=== PATIENT | female | born 1950 | race Caucasian/White ===

== ENCOUNTER 2016-10-03 15:31 | Inpatient (IN) | payer MEDICARE, OTHER ==
[~2016-10-03] VITALS: Ht 152.4 cm; Wt 70.7 kg
[2016-10-03] MEDS ORDERED: SERT25TA PO (16:01)
[2016-10-03] MEDS ORDERED: ISOS10TA2 PO (16:01)
[2016-10-03] MEDS ORDERED: PIRF267C PO (16:03)
[2016-10-03] MEDS ORDERED: HYD25 PO (16:03)
[2016-10-03] MEDS ORDERED: OMEP20CA16 PO (16:03)
[2016-10-03] MEDS ORDERED: MONT10TA24 PO (16:04)
[2016-10-03] MEDS ORDERED: BENA5TAB2 PO (16:04)
[2016-10-03] MEDS ORDERED: ALBU2.5V3 NEB (16:04)
[2016-10-03] MEDS ORDERED: LOSA50TA6 PO (16:05)
[2016-10-03] MEDS ORDERED: FURO-110 PO (16:05)
[2016-10-03] MEDS ORDERED: PRED10TA PO (16:05)
[2016-10-03] MEDS ORDERED: CALC1TAB79 PO (16:06)
[2016-10-03] MEDS ORDERED: NIT4 SL (16:06)
[2016-10-03] MEDS ORDERED: IPRATROPIUM (NEB) 0.5 MG/2.5 ML AMP INH STA (16:14)
[2016-10-03] MEDS ORDERED: ALBUTEROL 0.5% (NEB) 2.5 MG/0.5 ML AMP INH STA (16:14)
[2016-10-03] MEDS ORDERED: METHYLPREDNISOLONE 125 MG INJ IV STA (16:14)
[2016-10-03 17:33] LABS: ADD SCAN DIFF NO
--- NOTE | 2016-10-03 17:35 | RADRPT ---
PROCEDURE: XR Chest. CLINICAL INDICATION: Shortness of breath. Asthma exacerbation. TECHNIQUE: Single frontal view. COMPARISON: None. FINDINGS: There are low lung volumes. There is bilateral interstitial pulmonary disease consistent with pulmo nary edema or a chronic inflammatory process. The heart is enlarged. There is calcification in the aorta consistent with atherosclerosis. There is no pleural effusion. There is no pneumothorax. IMPRESSION: 1. Low lung volumes. 2. Interstitial pulmonary disease consistent with pulmonary edema or chronic inflammatory process. 3. Cardiomegaly and atherosclerosis. RPTAT: QQ .Gamaliel Bradshaw MD, MD Date Time Electronically viewed and signed by .Gamaliel Bradshaw MD, on 10/03/2016 17:35 .R/
[2016-10-03 17:40] LABS: BASOPHILS % 0.2 % (0.0-2.0); EOSINOPHILS # 0.2 10^3/ul (0.0-0.5); EOSINOPHILS % 1.6 % (0.0-7.0); HEMATOCRIT 42.8 % (37.0-47.0); HEMOGLOBIN 13.9 g/dl (12.0-16.0); LYMPHOCYTES # 2.6 10^3/ul (0.8-2.9); LYMPHOCYTES % 21.7 % (15.0-51.0); MEAN CORPUSCULAR HGB CONC 32.5 g/dl (32.0-37.0); MEAN CORPUSCULAR VOLUME 92.4 fl (82.0-101.0); MEAN PLATELET VOLUME 10.8 fl (7.4-10.4); MONOCYTE # 0.7 10^3/ul (0.3-0.9); MONOCYTES % 5.6 % (0.0-11.0); NEUTROPHIL # 8.3 10^3/ul (1.6-7.5); NEUTROPHILS % 70.3 % (39.0-77.0); PLATELET COUNT 211 10^3/UL (140-415); RED BLOOD COUNT 4.63 10^6/ul (4.20-5.40); RED CELL DISTRIBUTION WIDTH 16.3 % (11.5-14.5); WHITE BLOOD COUNT 11.9 10^3/ul (4.8-10.8)
[2016-10-03 17:52] LABS: CHLORIDE 102 mmol/L (97-110); SODIUM 143 mmol/L (135-144)
[2016-10-03 17:53] LABS: POTASSIUM 4.2 mmol/L (3.5-5.1)
[2016-10-03 17:55] LABS: ANION GAP 15 (8-16); BLOOD UREA NITROGEN 26 mg/dl (7-20); CARBON DIOXIDE 30 mmol/L (21-31); CREATININE 0.81 mg/dl (0.44-1.00)
[2016-10-03 17:56] LABS: CALCIUM 8.8 mg/dl (8.4-10.2); GLUCOSE 109 mg/dl (70-220)
[2016-10-03 18:06] LABS: B-TYPE NATRIURETIC PEPTIDE 222 PG/ML (0-125)
[2016-10-03 18:13] LABS: TROPONIN-I < 0.010 ng/ml (0.00-0.12)
[2016-10-03] MEDS ORDERED: SOD CHLORIDE 0.9% 1,000 ML IV SCH (19:59)
[2016-10-03] MEDS ORDERED: ONDANSETRON 4 MG INJ IV PRN (20:00)
[2016-10-03] MEDS ORDERED: ACETAMINOPHEN 325 MG TAB PO PRN (20:00)
--- NOTE | 2016-10-03 20:05 | ERA ---
ER Documentation Chief Complaint Date/Time DATE: 10/03/16 TIME: 20:00 Chief Complaint 3 days of cough and congestion with mod sob,chest pain, vomiting with cough HPI 66-year-old female with a history of pulmonary fibrosis generally oxygen dependent complaining of 3 days of productive white sputum cough nonbloody with shortness of breath. She says she also has chest pain is worse with inspiration. She says this is consistent with prior pulmonary fibrosis exacerbations. She says she also is having some coughing fits that cause posttussive vomiting. No diarrhea no abdominal pain. ROS All systems reviewed and are negative except as per history of present illness. Medications Home Meds Reported Medications Calcium Carbonate/Vitamin D3 (Oysco 500+D Tablet) 1 Each Tablet, 1 EACH PO DAILY , TAB 10/03/16 Nitroglycerin* (Nitrostat*) 0.4 Mg Tab.subl, 0.4 MG SL Q5MIN Y for CHEST PAIN, BOTTLE 10/03/16 Prednisone* (Prednisone*) 10 Mg Tab, 10 MG PO DAILY, TAB 10/03/16 Losartan Potassium* (Losartan Potassium*) 50 Mg Tablet, 50 MG PO DAILY, TAB 10/03/16 Furosemide* (Lasix*) 20 Mg Tablet, 20 MG PO DAILY, TAB 10/03/16 Benazepril Hcl* (Benazepril Hcl*) 5 Mg Tablet, 5 MG PO DAILY, #30 TAB 10/03/16 Albuterol Sulfate* (Albuterol Sulfate* Neb) 0.083%-3 Ml Neb, 2.5 MG NEB Q6 Y for WHEEZING AND SOB, #30 VIAL 10/03/16 Montelukast Sodium* (Montelukast Sodium*) 10 Mg Tablet, 10 MG PO QHS, #30 TAB 10/03/16 Hydrochlorothiazide* (Hydrochlorothiazide*) 25 Mg Tab, 25 MG PO DAILY, #30 TAB 10/03/16 Omeprazole* (Omeprazole*) 20 Mg Capsule.dr, 20 MG PO DAILY, #30 CAP 10/03/16 Pirfenidone (Esbriet) 267 Mg Capsule, 801 MG PO WITH MEALS, CAP THREE TIMES DAILY 10/03/16 Sertraline Hcl* (Zoloft*) 25 Mg Tablet, 25 MG PO DAILY, #30 TAB 10/03/16 Isosorbide Dinitrate* (Isosorbide Dinitrate*) 10 Mg Tablet, 10 MG PO TID, TAB 10/03/16 Allergies Allergies: Coded Allergies: Penicillins (Verified Allergy, Intermediate, RASH ITCHY, 10/03/16) PMhx/Soc History of Surgery: Yes (BREAST REDUCTION, ABD) Anesthesia Reaction: No Hx Neurological Disorder: No Hx Respiratory Disorders: No Hx Cardiac Disorders: Yes (HTN) Hx Psychiatric Problems: No Hx Miscellaneous Medical Probl: No Hx Alcohol Use: No Hx Substance Use: No Hx Tobacco Use: No Smoking Status: Never smoker FmHx Family History: No coronary disease Physical Exam Vitals Vital Signs Date Time Temp Pulse Resp B/P Pulse Ox O2 Delivery O2 Flow Rate FiO2 10/03/16 18:22 98.4 95 25 140/62 100 Mask 5.0 10/03/16 16:39 Nasal Cannula 4 10/03/16 15:34 97.9 105 30 132/78 82 Physical Exam Const: Well-developed, well-nourished Head: Atraumatic, normocephalic Eyes: Normal Conjunctiva, PERRLA, EOMI, normal sclera, no nystagmus ENT: Normal External Ears, Nose and Mouth, moist mucus membranes. Neck: Full range of motion. No meningismus, no lymphadenopathy. Resp: Mild increased work of breathing with diffuse rhonchi scattered throughout the lung yanes Cardio: Regular rate and rhythm, no murmurs, S1 S2 present Abd: Soft, non tender x 4, non distended. Normal bowel sounds, no guarding or rebound, no pulsitile abdominal masses or bruits Skin: No petechiae or rashes, no ecchymosis , no maculopapular rash Back: No midline or flank tenderness Ext: No cyanosis, or edema, FROM x 4, normal inspection, neurovascularly intact x 4 Neur: Awake and alert, STR 5/5 x 4, sensation intact x 4, no focal findings, cerebellum intact Psych: Normal Mood and Affect Result Diagram: 10/03/16 1700 10/03/16 1700 Results 24 hrs Laboratory Tests Test 10/03/16 17:00 Anion Gap 15 B-Type Natriuretic Peptide 222PG/ML Basophils # 0.010^3/ul Basophils % 0.2% Blood Urea Nitrogen 26mg/dl Calcium Level 8.8mg/dl Carbon Dioxide Level 30mmol/L Chloride Level 102mmol/L Creatinine 0.81mg/dl Eosinophils # 0.210^3/ul Eosinophils % 1.6% Glucose Level 109mg/dl Hematocrit 42.8% Hemoglobin 13.9g/dl Lymphocytes # 2.610^3/ul Lymphocytes % 21.7% Mean Corpuscular Hemoglobin 30.0pg Mean Corpuscular Hemoglobin Concent 32.5g/dl Mean Corpuscular Volume 92.4fl Mean Platelet Volume 10.8fl Monocytes # 0.710^3/ul Monocytes % 5.6% Neutrophils # 8.310^3/ul Neutrophils % 70.3% Nucleated Red Blood Cells # 0.010^3/ul Nucleated Red Blood Cells % 0.0/100WBC Platelet Count 12948^3/UL Potassium Level 4.2mmol/L Red Blood Count 4.6310^6/ul Red Cell Distribution Width 16.3% Sodium Level 143mmol/L Troponin I < 0.010ng/ml White Blood Count 11.910^3/ul Current Medications Medications (Trade) Dose Ordered Sig/Xin Route PRN Reason Start Time Stop Time Status Last Admin Dose Admin Albuterol (Proventil 0.5% (Neb)) 10 mg ONCE STAT INH 10/03/16 16:14 10/03/16 16:17 DC 10/03/16 16:29 Ipratropium Arcade (Atrovent 0.02% (Neb)) 1 mg ONCE STAT INH 10/03/16 16:14 10/03/16 16:17 DC 10/03/16 16:29 Methylprednisolone Sodium Succinate (Solu-Medrol) 125 mg ONCE STAT IV 10/03/16 16:14 10/03/16 16:17 DC 10/03/16 17:17 Procedures/MDM PROCEDURE: XR Chest. CLINICAL INDICATION: Shortness of breath. Asthma exacerbation. TECHNIQUE: Single frontal view. COMPARISON: None. FINDINGS: There are low lung volumes. There is bilateral interstitial pulmonary disease consistent with pulmonary edema or a chronic inflammatory process. The heart is enlarged. There is calcification in the aorta consistent with atherosclerosis. There is no pleural effusion. There is no pneumothorax. IMPRESSION: 1. Low lung volumes. 2. Interstitial pulmonary disease consistent with pulmonary edema or chronic inflammatory process. 3. Cardiomegaly and atherosclerosis. RPTAT: QQ .Gamaliel Bradshaw MD, Date Time Electronically viewed and signed by .Gamaliel Bradshaw MD, on 10/03/2016 17:35 .R/ CC: DARIEL DONOVAN DO EKG: Rate/Rhythm: Normal Sinus Rhythm,NL intervals nonspecific ST QRS, ST, QT: NORMAL [place], QRS, QT] Impression: NORMAL EKG Patient states she still feeling a bit short of breath or lung sounds are not much better. She did receive nebulizer treatments for an extended amount of time plus steroids. Will admit for pulmonary fibrosis exacerbation of bronchitis and hypoxia Departure Diagnosis: Primary Impression: Hypoxia Additional Impressions: Pulmonary fibrosis Bronchitis Condition: Stable DARIEL DONOVAN DO Oct 03, 2016 20:05
[2016-10-04] VITALS (13 sets, daily range): BP systolic 106–183; BP diastolic 55–84; PULSE 64–103; RESP 19–21; TEMP 98.1; Ht 152.4 cm; Wt 70.7 kg
[2016-10-04] MEDS ORDERED: ONDANSETRON 4 MG INJ IV PRN (04:00)
[2016-10-04] MEDS ORDERED: NITROGLYCERIN (SL) 0.4 MG TAB SL PRN (04:00)
[2016-10-04] MEDS ORDERED: hydrALAzine 20 MG INJ IV ONE (06:00)
[2016-10-04] MEDS: FUROSEMIDE 20 MG TAB PO SCH (06:29)
[2016-10-04] MEDS ORDERED: PIRFENIDONE 801 MG PO SCH (07:55)
[2016-10-04 08:23] LABS: ADD SCAN DIFF NO
--- NOTE | 2016-10-04 08:26 | HP ---
DATE OF ADMISSION: 10/03/2016 TIME SEEN: 2300. CHIEF COMPLAINT: Cough and shortness of breath. IDENTIFICATION: The patient is a 66-year-old female with a history of pulmonary fibrosis, on home o xygen, arthritis, asthma, and hypertension, who presented to the emergency department with a chief c omplaint of cough and shortness of breath. The patient is Latvian speaking only, but she was answer ing questions appropriately through the help of an branch account manager. She stated that over the past 4 day s also she had been experiencing progressively worsening shortness of breath and cough, which was pr oductive of small whitish sputum. She had been using her albuterol with increased frequency, but he r symptom persisted. She stated she has also been started on oral steroids, which she has been inng gil, but her symptoms persisted and as such, she came here for evaluation. She reported chest pain t hat is associated with the cough and also reported some chills, but no fever. She also reported wilner n on her right arm, which she also was having a hard time with range of motion. She stated she has been receiving steroid injections, which she received recently. When she presented to the ER her blood pressure was 132/78, heart rate 105, respiratory rate 30, tem perature 97.9, and oxygen saturation was 82% on room air. She was given 125 mg of IV Solu-Medrol an d received breathing treatments with albuterol and oxygen. Symptom of hypoxia has improved, but she continues to have a persistent cough which was productive of minimal white sputum. In fact, during my history taking, she had been coughing for quite a long time. REVIEW OF SYSTEMS: A 12-point review of systems was performed and negative except as mentioned in t he HPI. PAST MEDICAL HISTORY: As per HPI. PAST SURGICAL HISTORY: Breast reduction, x2, cholecystectomy, hernia repair. SOCIAL HISTORY: Positive for tobacco, but she quit several years ago. ALLERGIES: PENICILLIN. HOME MEDICATIONS: 1. Albuterol. 2. Benazepril. 3. Imdur. 4. Losartan. 5. Sublingual nitroglycerin. 6. Zoloft. 7. Calcium. 8. Vitamin D. 9. Laxis. 10. Hydrochlorothiazide. 11. Montelukast. 12. Pirfenidone. 13. Prilosec. 14. Prednisone. PHYSICAL EXAMINATION: VITAL SIGNS: Blood pressure 159/83, heart rate 86, respiratory rate 24, temperature 98.1, oxygen sa turation 96% on 2 liters. GENERAL: The patient is sitting on the chair. She is in some distress due to consistent cough and also right upper extremity/shoulder pain from her arthritis. HEENT: No obvious head deformity. Pupils are reactive to light. Extraocular muscles intact. CARDIOVASCULAR: Tachycardic, with a regular rhythm. LUNGS: She has some rhonchi in the bibasilar area. No wheezes were heard. ABDOMEN: Soft. There are old surgical scars. Positive bowel sounds. EXTREMITIES: No edema. Right arm, there is tenderness in the right arm, especially with range of m otion. I did not notice any obvious deformity. In her shoulder area there is some erythema, which she stated was from a recent steroid injection. LABORATORY: WBC 11.9, BUN 26. Otherwise CBC and BMP are within normal limits. BNP is 222. IMAGING: Chest x-ray shows interstitial pulmonary disease consistent with pulmonary edema or chroni c inflammatory process. Also noted was cardiomegaly, atherosclerosis and lower lung volumes. Other burns no pleural effusion or pneumothorax. IMPRESSION: 1. Hypoxia, secondary to pulmonary fibrosis. 2. History of pulmonary fibrosis, on home oxygen. 3. History of asthma, likely with exacerbation. 4. Hypertension, blood pressure not at goal. 5. Right upper extremity pain and limited range of motion, secondary to known arthritis. PLAN: She will be continued on oxygen. She will be treated with bronchodilators and steroids. Jose Antonio little continue her home medications, including her pirfenidone for her pulmonary fibrosis. We will adju st antihypertensives for better blood pressure control, which will most likely also improve after co ntrolling her cough and . We will place a pulmonary consult with Dr. Murrell, who the patient has been following up with. Her chest x-ray also mentions possible pulmonary edema, and the patient actually takes Lasix, and as such, will obtain a 2D echo to evaluate her heart. Further workup and management will be per clinical course. Dictated By: SARAH PEREZ/SAMANTHA Conf#: [id number] DID#: [id number]
[2016-10-04 08:27] LABS: BASOPHILS % 0.2 % (0.0-2.0); EOSINOPHILS % 0.1 % (0.0-7.0); HEMATOCRIT 46.2 % (37.0-47.0); HEMOGLOBIN 15.2 g/dl (12.0-16.0); LYMPHOCYTES # 1.4 10^3/ul (0.8-2.9); LYMPHOCYTES % 15.5 % (15.0-51.0); MEAN CORPUSCULAR HEMOGLOBIN 30.2 pg (29.0-33.0); MEAN CORPUSCULAR HGB CONC 32.9 g/dl (32.0-37.0); MEAN CORPUSCULAR VOLUME 91.8 fl (82.0-101.0); MEAN PLATELET VOLUME 10.2 fl (7.4-10.4); MONOCYTE # 0.4 10^3/ul (0.3-0.9); MONOCYTES % 4.7 % (0.0-11.0); NEUTROPHIL # 7.3 10^3/ul (1.6-7.5); NEUTROPHILS % 79.1 % (39.0-77.0); PLATELET COUNT 229 10^3/UL (140-415); RED BLOOD COUNT 5.03 10^6/ul (4.20-5.40); RED CELL DISTRIBUTION WIDTH 16.4 % (11.5-14.5); WHITE BLOOD COUNT 9.2 10^3/ul (4.8-10.8)
[2016-10-04] MEDS ORDERED: hydrALAzine 20 MG INJ IV PRN (08:30)
[2016-10-04] MEDS ORDERED: morphine 2 MG INJ IV PRN (08:30)
[2016-10-04 08:50] LABS: ALBUMIN 4.2 g/dl (3.3-4.9)
[2016-10-04 08:51] LABS: POTASSIUM 4.3 mmol/L (3.5-5.1)
[2016-10-04 08:53] LABS: ALBUMIN/GLOBULIN RATIO 1.23; BILIRUBIN,INDIRECT 0.4 mg/dl (0-1.1); BILIRUBIN,TOTAL 0.4 mg/dl (0.2-1.3); CREATININE 0.67 mg/dl (0.44-1.00); TOTAL PROTEIN 7.6 g/dl (6.1-8.1)
[2016-10-04 08:54] LABS: CALCIUM 9.3 mg/dl (8.4-10.2)
[2016-10-04] MEDS ORDERED: [UNRECOGNIZED DRUG - REMARK] XX SCH (10:00)
[2016-10-04] MEDS: ACETAMINOPHEN 325 MG TAB PO PRN (10:01)
[2016-10-04] MEDS: METHYLPREDNISOLONE 125 MG INJ IV SCH ×2 (10:02→21:29)
[2016-10-04] MEDS: LOSARTAN 50 MG TAB PO SCH (10:02)
[2016-10-04] MEDS: BENAZEPRIL 5 MG TAB PO SCH (10:03)
[2016-10-04] MEDS: CALCIUM/VITAMIN D (500/200) TAB PO SCH (10:03)
[2016-10-04] MEDS: SERTRALINE 50 MG TAB PO SCH (10:03)
[2016-10-04] MEDS: ISOSORBIDE DINITRATE 10 MG TAB PO SCH ×3 (10:03→21:22)
[2016-10-04] MEDS: FAMOTIDINE 20 MG TAB PO SCH ×2 (10:03→21:27)
[2016-10-04] MEDS: HEPARIN 5,000 UNIT/0.5 ML SYG SC SCH ×2 (10:25→21:44)
[2016-10-04] MEDS: GUAIFENESIN/DM 5ML CUP PO PRN (12:44)
--- NOTE | 2016-10-04 14:11 | PN ---
DATE: 10/04/2016 TIME OF EVALUATION: 12:40 p.m. SUBJECTIVE DATA: Complains of cough and dyspnea. Complains of right shoulder pain. OBJECTIVE DATA: VITAL SIGNS: Temperature 97.7, pulse rate 69, respiratory rate 19, blood pressure 114/60, oxygen saturation 97% on 3 liters oxygen via nasal cannula. GENERAL: This is a slightly obese female lying in bed in no apparent distress. HEENT: Head normocephalic and atraumatic. Eyes: Anicteric sclerae. Conjunctivae clear. ENT: Nasal septum is midline. Oral mucosa is dry. NECK: Supple. No JVD noticed. RESPIRATORY: Bilaterally diminished breath sounds. Bilateral fine rales heard. Minimal use of accessory muscles of respiration. CARDIAC: Regular rate and rhythm. No obvious murmurs heard. ABDOMEN: Soft, nontender and nondistended. Bowel sounds positive in all 4 quadrants. GENITOURINARY: Deferred. EXTREMITIES: No cyanosis, no clubbing, no edema. Peripheral pulses palpable. NEUROLOGIC: The patient is awake, alert and oriented. Cranial nerves are grossly intact. LABORATORY AND DIAGNOSTIC DATA: WBC 9.2, hemoglobin 15.1, hematocrit 46.2, platelet count 229. Sodium 147, potassium 4.3, chloride 104, carbon dioxide 38 , anion gap 17, BUN 24, creatinine 0.6 and glucose 96, calcium 9.3. ASSESSMENT AND PLAN: 1. Acute on chronic respiratory failure. Etiology could be possible underlying airway infection on the top of underlying pulmonary fibrosis. Continue inhaled bronchodilators. Continue tapering dose of steroids. Continue supplemental oxygen. We will start the patient on empiric antibiotics for any underlying tracheobronchitis. 2. Accelerated hypertension. Continue antihypertensives including p.r.n. antihypertensives for systolic blood pressure readings greater than 160 mmHg. 3. Pulmonary fibrosis. Continue routine medications including Singulair and Esbriet. 4. Right upper extremity pain with limited range of motion of the right upper extremity. The patient has a history of right shoulder joint osteoarthritis. Continue pain control. 5. Fluid, electrolytes and nutrition. Continue 2 gram sodium diet. 6. Deep venous thrombosis prophylaxis. Subcutaneous heparin. 7. Gastrointestinal prophylaxis with histamine 2 receptor blockers. PLAN: 1. Continue tapering dose of IV steroids. 2. Continue inhaled bronchodilators. 3. Await pulmonology evaluation. 4. Start empiric antibiotics. Case discussed with Dr. Amaral. DARYL AMARAL MD, AM/SAMANTHA Conf#: [id number] DID#: [id number] MTDD
--- NOTE | 2016-10-04 15:48 | RADRPT ---
Echocardiogram Report Patient Name: SARAH HOLLINGSWORTH Gender: Female Date: 1950 Study Date: 04-Oct-2016 Educational Advisor: JONATHAN [facility] Location: 521 Ref. Physician: SARAH SILVA Quality: Technically Difficult Study Procedures: Transthoracic echocardiogram with complete 2D, M-Mode, and doppler examination. Indications: Shortness of breath. 2D/M Mode Doppler Measurement Value Normal Ranges Measurement Value Normal Ranges LVIDd 2D 3.6 3.5 - 5.6 cm AV Peak Andi 0.6 m/sec LVIDs 2D 2.5 2.1 - 4.1 cm AV Peak PG 2.2 mmHg IVSd 2D 1.1 0.6 - 1.1 cm LVOT Peak Andi 0.1 m/sec EDV 2D 55.4 cm3 LVOT Peak PG 0.0 mmHg ESV 2D 15.7 cm3 MV E Peak Andi 0.6 m/sec MV A Peak Andi 0.8 m/sec MV E/A 0.8 MV Decel Time 113 msec MV Decel [place] 5 MV E/A 0.8 TR Peak Andi 2.9 m/sec TR Peak PG 34.8 mmHg Findings Left Ventricle: Hyperdynamic left ventricular systolic function. Normal left ventricular cavity size. Left ventricular wall thickness upper limits of normal. Ejection fraction is visually estimated at 70 %. Abnormal Diastolic Function. Right Ventricle: Mild enlargement of right ventricle. Mild right ventricular hypokinesis. Left Atrium: The left atrium is normal in size. Right Atrium: The right atrium is normal in size. Mitral Valve: Mild mitral annular calcification. Trace mitral regurgitation. Aortic Valve: Trileaflet aortic valve. Tricuspid Valve: Normal appearance and function of the tricuspid valve with trace physiologic regurgitation. Estimated peak PA systolic pressure 38 mmHg. There is mild tricuspid regurgitation. Pericardium: Normal pericardium with no significant pericardial effusion. Aorta: Normal aortic root. IVC: Normal size and normal respiratory collapse consistent with normal right atrial pressure. Conclusions 1.Hyperdynamic left ventricular systolic function. Normal left ventricular cavity size. Left ventricular wall thickness upper limits of normal. Ejection fraction is visually estimated at 70 %. Abnormal Diastolic Function. 2.Mild mitral annular calcification. Trace mitral regurgitation. 3.Normal appearance and function of the tricuspid valve with trace physiologic regurgitation. Estimated peak PA systolic pressure 38 mmHg. There is mild tricuspid regurgitation. Electronically Signed By: Ender Mauricio 04-Oct-2016 15:48:06 -0800 Patient Name: SARAH HOLLINGSWORTH Study Date: 04-Oct-[id number]
[2016-10-04] MEDS: LEVOFLOXACIN 500MG/D5W (PMX) 100 ML IVPB SCH (15:49)
[2016-10-04] MEDS: ESBRIET PO SCH (17:52)
[2016-10-04] MEDS: MONTELUKAST 10 MG TAB PO SCH (21:23)
[2016-10-05] VITALS (10 sets, daily range): BP systolic 103–191; BP diastolic 59–101; PULSE 61–110; RESP 18–22
[2016-10-05] MEDS: FUROSEMIDE 20 MG TAB PO SCH (06:00)
[2016-10-05 07:05] LABS: ADD SCAN DIFF NO
[2016-10-05 07:08] LABS: BASOPHILS % 0.1 % (0.0-2.0); HEMATOCRIT 42.8 % (37.0-47.0); LYMPHOCYTES # 0.9 10^3/ul (0.8-2.9); LYMPHOCYTES % 12.7 % (15.0-51.0); MEAN CORPUSCULAR HEMOGLOBIN 30.3 pg (29.0-33.0); MEAN CORPUSCULAR HGB CONC 32.7 g/dl (32.0-37.0); MEAN CORPUSCULAR VOLUME 92.6 fl (82.0-101.0); MEAN PLATELET VOLUME 10.5 fl (7.4-10.4); MONOCYTE # 0.2 10^3/ul (0.3-0.9); NEUTROPHIL # 6.2 10^3/ul (1.6-7.5); NEUTROPHILS % 83.9 % (39.0-77.0); PLATELET COUNT 195 10^3/UL (140-415); RED BLOOD COUNT 4.62 10^6/ul (4.20-5.40); RED CELL DISTRIBUTION WIDTH 16.4 % (11.5-14.5); WHITE BLOOD COUNT 7.4 10^3/ul (4.8-10.8)
[2016-10-05 07:25] LABS: POTASSIUM 4.4 mmol/L (3.5-5.1)
[2016-10-05 07:28] LABS: CALCIUM 8.9 mg/dl (8.4-10.2); CREATININE 0.68 mg/dl (0.44-1.00)
[2016-10-05] MEDS: SERTRALINE 50 MG TAB PO SCH (08:08)
[2016-10-05] MEDS: BENAZEPRIL 5 MG TAB PO SCH (08:09)
[2016-10-05] MEDS: METHYLPREDNISOLONE 125 MG INJ IV SCH ×2 (08:09→21:16)
[2016-10-05] MEDS: LOSARTAN 50 MG TAB PO SCH (08:09)
[2016-10-05] MEDS: CALCIUM/VITAMIN D (500/200) TAB PO SCH (08:09)
[2016-10-05] MEDS: FAMOTIDINE 20 MG TAB PO SCH ×2 (08:09→21:17)
[2016-10-05] MEDS: ISOSORBIDE DINITRATE 10 MG TAB PO SCH (08:09)
[2016-10-05] MEDS: ESBRIET PO SCH ×2 (08:12→11:50)
[2016-10-05 08:51] LABS: CHOL/HDL RATIO 2.5 RATIO; MAGNESIUM 1.9 mg/dl (1.7-2.5); PHOSPHORUS 4.4 mg/dl (2.5-4.9)
[2016-10-05] MEDS: HEPARIN 5,000 UNIT/0.5 ML SYG SC SCH ×2 (09:00→21:00)
[2016-10-05 09:25] LABS: THYROID STIMULATING HORMONE 0.983 MIU/L (0.465-4.680)
--- NOTE | 2016-10-05 12:23 | PN ---
Date/Time of Note Date/Time of Note DATE: 10/05/16 TIME: 12:22 Assessment/Plan VTE Prophylaxis VTE Prophylaxis Intervention: heparin Lines/Catheters IV [facility]atheter [facility] (from [facility]): [place] [facility] Urinary Cath still in place: No Assessment/Plan Chief Complaint/Hosp Course 1. Acute on chronic respiratory failure. Etiology could be possible underlying airway infection on the top of underlying pulmonary fibrosis and asthma exacerbation. Continue inhaled bronchodilators. Continue tapering dose of steroids. Continue supplemental oxygen. 2. Accelerated hypertension. Continue antihypertensives including p.r.n. antihypertensives for systolic blood pressure readings greater than 160 mmHg. 3. Pulmonary fibrosis. Continue routine medications including Singulair and Esbriet. 4. Right upper extremity pain with limited range of motion of the right upper extremity. The patient has a history of right shoulder joint osteoarthritis. Continue pain control. 5. Fluid, electrolytes and nutrition. Continue 2 gram sodium diet. 6. Deep venous thrombosis prophylaxis. Subcutaneous heparin. 7. Gastrointestinal prophylaxis with histamine 2 receptor blockers. PLAN: 1. Continue tapering dose of IV steroids. 2. Continue inhaled bronchodilators. 3. Adjust antihypertensives to obtain optimal blood pressure control. Case discussed with Dr. Dixon. Problems: Subjective 24 Hr Interval Summary Free Text/Dictation Still having some exertional dyspnea. Productive cough. Exam/Review of Systems Vital Signs Vitals Vital Signs Date Time Temp Pulse Resp B/P Pulse Ox O2 Delivery O2 Flow Rate FiO2 10/05/16 11:30 98.1 70 18 143/80 96 10/05/16 10:56 Nasal Cannula 3.0 Intake and Output 10/04/16 10/04/16 10/05/16 15:00 23:00 07:00 Intake Total 900 ml 750 ml Output Total 700 ml Balance 900 ml 50 ml Exam GENERAL: This is a slightly obese female lying in bed in no apparent distress. HEENT: Head normocephalic and atraumatic. Eyes: Anicteric sclerae. Conjunctivae clear. ENT: Nasal septum is midline. Oral mucosa is dry. NECK: Supple. No JVD noticed. RESPIRATORY: Bilaterally diminished breath sounds. Bilateral fine rales heard. Minimal use of accessory muscles of respiration. CARDIAC: Regular rate and rhythm. No obvious murmurs heard. ABDOMEN: Soft, nontender and nondistended. Bowel sounds positive in all 4 quadrants. GENITOURINARY: Deferred. EXTREMITIES: No cyanosis, no clubbing, no edema. Peripheral pulses palpable. NEUROLOGIC: The patient is awake, alert and oriented. Cranial nerves are grossly intact. Results Result Diagram: 10/05/16 0632 10/05/16 0635 Results 24 hrs Laboratory Tests Test 10/05/16 06:32 10/05/16 06:35 Basophils # 0.0 Basophils % 0.1 Cholesterol Level 184 Cholesterol/HDL Ratio 2.5 Eosinophils # 0.0 Eosinophils % 0.0 Free Thyroxine 0.97 HDL Cholesterol 72 Hematocrit 42.8 Hemoglobin 14.0 Hemoglobin A1c 5.7 LDL Cholesterol, Calculated 90 Lymphocytes # 0.9 Lymphocytes % 12.7 L Magnesium Level 1.9 Mean Corpuscular Hemoglobin 30.3 Mean Corpuscular Hemoglobin Concent 32.7 Mean Corpuscular Volume 92.6 Mean Platelet Volume 10.5 H Monocytes # 0.2 L Monocytes % 3.0 Neutrophils # 6.2 Neutrophils % 83.9 H Nucleated Red Blood Cells # 0.0 Nucleated Red Blood Cells % 0.0 Phosphorus Level 4.4 Platelet Count 195 Red Blood Count 4.62 Red Cell Distribution Width 16.4 H Thyroid Stimulating Hormone (TSH) 0.983 Triglycerides Level 111 White Blood Count 7.4 Anion Gap 14 Blood Urea Nitrogen 26 H Calcium Level 8.9 Carbon Dioxide Level 29 Chloride Level 102 Creatinine 0.68 Glucose Level 108 Potassium Level 4.4 Sodium Level 141 Medications Medications Current Medications Benazepril HCl (Lotensin) 5 mg DAILY PO Last administered on 10/05/16 08:09; Admin Dose 5 MG; Start 10/04/16 at 09:00 Furosemide (Lasix) 20 mg DAILY@06 PO Last administered on 10/05/16 06:00; Admin Dose 20 MG; Start 10/04/16 at 06:00 Isosorbide Dinitrate (Isordil) 10 mg TID PO Last administered on 10/05/16 08: 09; Admin Dose 10 MG; Start 10/04/16 at 09:00 Losartan Potassium (Cozaar) 50 mg DAILY PO Last administered on 10/05/16 08:09 ; Admin Dose 50 MG; Start 10/04/16 at 09:00 Montelukast Sodium (Singulair) 10 mg QHS PO Last administered on 10/04/16 21: 23; Admin Dose 10 MG; Start 10/04/16 at 21:00 Nitroglycerin (Nitroglycerin (Sl Tab) 0.4 Mg) 1 tab PRN PRN SL CHEST PAIN; Start 10/04/16 at 04:00 Sertraline HCl (Zoloft) 25 mg DAILY PO Last administered on 10/05/16 08:08; Admin Dose 25 MG; Start 10/04/16 at 09:00 Calcium/Vitamin D (Oyster Shell/ Vit-D (500/200)) 1 tab DAILY PO Last administered on 10/05/16 08:09; Admin Dose 1 TAB; Start 10/04/16 at 09:00 Famotidine (Pepcid) 20 mg BID PO Last administered on 10/05/16 08:09; Admin Dose 20 MG; Start 10/04/16 at 09:00 Acetaminophen (Tylenol Tab) 650 mg Q6H PRN PO PAIN AND OR ELEVATED TEMP Last administered on 10/04/16 10:01; Admin Dose 650 MG; Start 10/04/16 at 04:00 Ondansetron HCl (Zofran Inj) 4 mg Q6H PRN IV NAUSEA AND/OR VOMITING; Start at 04:00 Methylprednisolone Sodium Succinate (Solu-Medrol) 60 mg Q12 IV Last administered on 10/05/16 08:09; Admin Dose 60 MG; Start 10/04/16 at 09:00 Heparin Sodium (Porcine) (Heparin (5000 Units/0.5 ml)) 5,000 unit BID SC Last administered on 10/04/16 21:44; Admin Dose 5,000 UNIT; Start 10/04/16 at 09:00 Morphine Sulfate (morphine) 3 mg Q4H PRN IV PAIN; Start 10/04/16 at 08:30 Hydralazine HCl (Apresoline) 10 mg Q4H PRN IV SBP GREATER THAN 160; Start 10/04 at 08:30 Guaifenesin/ Dextromethorphan 10 ml 10 ml Q4H PRN PO COUGH Last administered on 10/04/16 12:44; Admin Dose 10 ML; Start 10/04/16 at 08:30 Levofloxacin/ Dextrose (Levaquin 500mg/ D5W 100 ml (Pmx)) 100 ml @ 100 mls/hr Q24H IVPB Last administered on 2/24/17at 15:49; Admin Dose 100 MLS/HR; Start at 14:00 DARYL CHAND NP Oct 05, 2016 12:23
--- NOTE | 2016-10-05 12:27 | CONS ---
Date/Time of Note Date/Time of Note DATE: 10/05/16 TIME: 12:22 Assessment/Plan Assessment/Plan Additional Assessment/Plan Chest x-ray was reviewed from of this month which is showing small lung volumes with bibasilar fibrotic changes. Assessment recommendations; 1. Patient admitted with acute bronchitis and asthma exacerbation. With significant clinical improvement. 2. Chronic hypoxemia. Patient on home O2. 3. Other stable comorbidities as outlined above. Patient responding well to current treatment regimen. Continue current medications. Consultation Date/Type/Reason Admit Date/Time Oct 03, 2016 at 20:00 Date of Consultation: Oct 05, 2016 Type of Consultation: Pulmonary Reason for Consultation Pulmonary consultation obtained for evaluation of pulmonary fibrosis and asthma exacerbation. History of present illness; patient is a pleasant 66-year-old lady who came into the hospital on the of this month with a 3 day history of increasing cough chest congestion sputum production and wheezing. Upon evaluation a chest x-ray was done which is consistent with findings of pulmonary fibrosis. The patient had been started on antibiotics as well as bronchodilators with systemic steroids with significant improvement in symptoms. She denies any fever, chest pain, shortness of breath wheezing have improved. Has any fever chills. Any body aches arthralgias or myalgias. Past medical history; 1. History of pulmonary fibrosis. 2. Asthma. 3. Hypertension. 4. History of breast reduction. 5. Status post 2. 6. History of cholecystectomy and herniorrhaphy. Medications; were reviewed. Allergies; or penicillins. Social history; patient has a prior history of smoking. No history of alcohol or drug abuse. Family history; various family members of diabetes hypertension in the family. 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 Review of systems; denies any headache, any visual changes. Any seizures. Any hearing loss. Any chest pain. Shortness of breath cough chest congestion are improving. Does complain of chronic dyspnea on exertion. Denies any abdominal pain, nausea. Denies any vomiting. Denies any melena or hematochezia. Denies any edema. Complains of chronic mild orthopnea. Denies any weight change. Denies any skin changes. General examination; elderly lady, currently in no distress awake and alert. Social History Smoking Status: Former smoker Exam/Review of Systems Vital Signs Vitals Vital Signs Date Time Temp Pulse Resp B/P Pulse Ox O2 Delivery O2 Flow Rate FiO2 10/05/16 11:30 98.1 70 18 143/80 96 10/05/16 10:56 Nasal Cannula 3.0 Intake and Output 10/04/16 10/04/16 10/05/16 15:00 23:00 07:00 Intake Total 900 ml 750 ml Output Total 700 ml Balance 900 ml 50 ml Exam HEENT examination; supple neck, no JVD. No lymphadenopathy. Midline trachea. No thyromegaly. Pharynx is clear. Patient wears dentures. Pupils are midsize and reactive to light bilaterally. Chest examination; upper lobes are clear to auscultation with bibasilar crackles. S1-S2 audible, no murmurs. Regular rhythm. Abdomen examination; soft, nontender. Multiple well-healed scars are present. Bowel sounds audible. Extremity examination; no peripheral edema. Pulses 1+ bilaterally. No clubbing. [employer] TECH[employer]ICIAN examination; cranial nerves are grossly intact. There is no focal deficit. Results Result Diagram: 10/05/16 0632 10/05/16 0635 Results 24 hrs Laboratory Tests Test 10/05/16 06:32 10/05/16 06:35 Basophils # 0.0 Basophils % 0.1 Cholesterol Level 184 Cholesterol/HDL Ratio 2.5 Eosinophils # 0.0 Eosinophils % 0.0 Free Thyroxine 0.97 HDL Cholesterol 72 Hematocrit 42.8 Hemoglobin 14.0 Hemoglobin A1c 5.7 LDL Cholesterol, Calculated 90 Lymphocytes # 0.9 Lymphocytes % 12.7 L Magnesium Level 1.9 Mean Corpuscular Hemoglobin 30.3 Mean Corpuscular Hemoglobin Concent 32.7 Mean Corpuscular Volume 92.6 Mean Platelet Volume 10.5 H Monocytes # 0.2 L Monocytes % 3.0 Neutrophils # 6.2 Neutrophils % 83.9 H Nucleated Red Blood Cells # 0.0 Nucleated Red Blood Cells % 0.0 Phosphorus Level 4.4 Platelet Count 195 Red Blood Count 4.62 Red Cell Distribution Width 16.4 H Thyroid Stimulating Hormone (TSH) 0.983 Triglycerides Level 111 White Blood Count 7.4 Anion Gap 14 Blood Urea Nitrogen 26 H Calcium Level 8.9 Carbon Dioxide Level 29 Chloride Level 102 Creatinine 0.68 Glucose Level 108 Potassium Level 4.4 Sodium Level 141 Medications Medications Current Medications Benazepril HCl (Lotensin) 5 mg DAILY PO Last administered on 10/05/16 08:09; Admin Dose 5 MG; Start 10/04/16 at 09:00 Furosemide (Lasix) 20 mg DAILY@06 PO Last administered on 10/05/16 06:00; Admin Dose 20 MG; Start 10/04/16 at 06:00 Isosorbide Dinitrate (Isordil) 10 mg TID PO Last administered on 10/05/16 08: 09; Admin Dose 10 MG; Start 10/04/16 at 09:00 Losartan Potassium (Cozaar) 50 mg DAILY PO Last administered on 10/05/16 08:09 ; Admin Dose 50 MG; Start 10/04/16 at 09:00 Montelukast Sodium (Singulair) 10 mg QHS PO Last administered on 10/04/16 21: 23; Admin Dose 10 MG; Start 10/04/16 at 21:00 Nitroglycerin (Nitroglycerin (Sl Tab) 0.4 Mg) 1 tab PRN PRN SL CHEST PAIN; Start 10/04/16 at 04:00 Sertraline HCl (Zoloft) 25 mg DAILY PO Last administered on 10/05/16 08:08; Admin Dose 25 MG; Start 10/04/16 at 09:00 Calcium/Vitamin D (Oyster Shell/ Vit-D (500/200)) 1 tab DAILY PO Last administered on 10/05/16 08:09; Admin Dose 1 TAB; Start 10/04/16 at 09:00 Famotidine (Pepcid) 20 mg BID PO Last administered on 10/05/16 08:09; Admin Dose 20 MG; Start 10/04/16 at 09:00 Acetaminophen (Tylenol Tab) 650 mg Q6H PRN PO PAIN AND OR ELEVATED TEMP Last administered on 10/04/16 10:01; Admin Dose 650 MG; Start 10/04/16 at 04:00 Ondansetron HCl (Zofran Inj) 4 mg Q6H PRN IV NAUSEA AND/OR VOMITING; Start at 04:00 Methylprednisolone Sodium Succinate (Solu-Medrol) 60 mg Q12 IV Last administered on 10/05/16 08:09; Admin Dose 60 MG; Start 10/04/16 at 09:00 Heparin Sodium (Porcine) (Heparin (5000 Units/0.5 ml)) 5,000 unit BID SC Last administered on 10/04/16 21:44; Admin Dose 5,000 UNIT; Start 10/04/16 at 09:00 Morphine Sulfate (morphine) 3 mg Q4H PRN IV PAIN; Start 10/04/16 at 08:30 Hydralazine HCl (Apresoline) 10 mg Q4H PRN IV SBP GREATER THAN 160; Start 10/04 at 08:30 Guaifenesin/ Dextromethorphan 10 ml 10 ml Q4H PRN PO COUGH Last administered on 10/04/16 12:44; Admin Dose 10 ML; Start 10/04/16 at 08:30 Levofloxacin/ Dextrose (Levaquin 500mg/ D5W 100 ml (Pmx)) 100 ml @ 100 mls/hr Q24H IVPB Last administered on 10/04/16 15:49; Admin Dose 100 MLS/HR; Start at 14:00 LUIS E YOUNG Oct 05, 2016 12:27
[2016-10-05] MEDS ORDERED: [UNRECOGNIZED DRUG - REMARK] XX SCH (12:30)
[2016-10-05] MEDS: ISOSORBIDE DINITRATE 20 MG TAB PO SCH ×2 (13:23→21:31)
[2016-10-05] MEDS: LEVOFLOXACIN 500MG/D5W (PMX) 100 ML IVPB SCH (13:24)
[2016-10-05] MEDS ORDERED: PATIENT'S OWN MEDICATION PO SCH (17:55)
[2016-10-05] MEDS: ACETAMINOPHEN 325 MG TAB PO PRN (18:58)
[2016-10-05] MEDS: MONTELUKAST 10 MG TAB PO SCH (21:17)
[2016-10-05] MEDS: GUAIFENESIN/DM 5ML CUP PO PRN (21:21)
[2016-10-05] MEDS: ALBUTEROL/IPRATROPIUM (NEB) 3 ML AMP HHN PRN (21:41)
[2016-10-06] MEDS: FUROSEMIDE 20 MG TAB PO SCH (05:12)
[2016-10-06 06:17] LABS: ADD SCAN DIFF NO
[2016-10-06 06:20] LABS: BASOPHILS % 0.1 % (0.0-2.0); HEMATOCRIT 45.7 % (37.0-47.0); HEMOGLOBIN 14.6 g/dl (12.0-16.0); LYMPHOCYTES # 0.7 10^3/ul (0.8-2.9); LYMPHOCYTES % 8.5 % (15.0-51.0); MEAN CORPUSCULAR HEMOGLOBIN 30.4 pg (29.0-33.0); MEAN CORPUSCULAR HGB CONC 31.9 g/dl (32.0-37.0); MEAN PLATELET VOLUME 11.4 fl (7.4-10.4); MONOCYTE # 0.2 10^3/ul (0.3-0.9); MONOCYTES % 2.8 % (0.0-11.0); NEUTROPHILS % 88.2 % (39.0-77.0); PLATELET COUNT 212 10^3/UL (140-415); RED BLOOD COUNT 4.81 10^6/ul (4.20-5.40); RED CELL DISTRIBUTION WIDTH 16.9 % (11.5-14.5); WHITE BLOOD COUNT 7.9 10^3/ul (4.8-10.8)
[2016-10-06 06:32] LABS: POTASSIUM 5.3 mmol/L (3.5-5.1)
[2016-10-06 06:35] LABS: CALCIUM 8.8 mg/dl (8.4-10.2); CREATININE 0.77 mg/dl (0.44-1.00)
[2016-10-06 06:43] LABS: MAGNESIUM 1.9 mg/dl (1.7-2.5); PHOSPHORUS 4.7 mg/dl (2.5-4.9)
[2016-10-06 08:07] VITALS: BP 128/77; RESP 20
[2016-10-06] MEDS: HEPARIN 5,000 UNIT/0.5 ML SYG SC SCH ×3 (08:45→21:00)
[2016-10-06] MEDS: METHYLPREDNISOLONE 125 MG INJ IV SCH ×2 (08:45→21:25)
[2016-10-06] MEDS: CALCIUM/VITAMIN D (500/200) TAB PO SCH (08:47)
[2016-10-06] MEDS: FAMOTIDINE 20 MG TAB PO SCH ×2 (08:47→21:26)
[2016-10-06] MEDS: SERTRALINE 50 MG TAB PO SCH (08:49)
[2016-10-06] MEDS: LOSARTAN 50 MG TAB PO SCH (08:49)
[2016-10-06] MEDS: ISOSORBIDE DINITRATE 20 MG TAB PO SCH ×4 (08:50→21:00)
[2016-10-06 11:17] VITALS: BP 141/79; RESP 20
--- NOTE | 2016-10-06 13:27 | PN ---
Date/Time of Note Date/Time of Note DATE: 10/06/16 TIME: 13:25 Assessment/Plan VTE Prophylaxis VTE Prophylaxis Intervention: heparin Lines/Catheters IV [facility]ter [facility]from [facility] Saline [facility] Urinary Cath still in place: No Assessment/Plan Chief Complaint/Hosp Course 1. Acute on chronic respiratory failure. Etiology could be possible underlying airway infection on the top of underlying pulmonary fibrosis and asthma exacerbation. Continue inhaled bronchodilators. Continue tapering dose of steroids. Continue supplemental oxygen. 2. Accelerated hypertension. Continue antihypertensives including p.r.n. antihypertensives for systolic blood pressure readings greater than 160 mmHg. 3. Pulmonary fibrosis. Continue routine medications including Singulair and Esbriet. 4. Right upper extremity pain with limited range of motion of the right upper extremity. The patient has a history of right shoulder joint osteoarthritis. Continue pain control. 5. Fluid, electrolytes and nutrition. Continue 2 gram sodium diet. 6. Deep venous thrombosis prophylaxis. Subcutaneous heparin. 7. Gastrointestinal prophylaxis with histamine 2 receptor blockers. PLAN: 1. Continue tapering dose of IV steroids. 2. Continue inhaled bronchodilators. 3. Additional dose of Lasix for hyperkalemia. Case discussed with Dr. Dixon. Problems: Subjective 24 Hr Interval Summary Free Text/Dictation Dyspnea with minimal exertion. Exam/Review of Systems Vital Signs Vitals Vital Signs Date Time Temp Pulse Resp B/P Pulse Ox O2 Delivery O2 Flow Rate FiO2 10/06/16 11:17 97.6 89 20 141/79 96 10/06/16 09:00 Nasal Cannula 3.0 Intake and Output 10/05/16 10/05/16 10/06/16 15:00 23:00 07:00 Intake Total 850 ml 600 ml Output Total 800 ml 500 ml Balance 50 ml 100 ml Exam GENERAL: This is a slightly obese female lying in bed in no apparent distress. HEENT: Head normocephalic and atraumatic. Eyes: Anicteric sclerae. Conjunctivae clear. ENT: Nasal septum is midline. Oral mucosa is dry. NECK: Supple. No JVD noticed. RESPIRATORY: Bilaterally diminished breath sounds. Bilateral fine rales heard with occasional wheezing. Minimal use of accessory muscles of respiration with exertion. CARDIAC: Regular rate and rhythm. No obvious murmurs heard. ABDOMEN: Soft, nontender and nondistended. Bowel sounds positive in all 4 quadrants. GENITOURINARY: Deferred. EXTREMITIES: No cyanosis, no clubbing, no edema. Peripheral pulses palpable. NEUROLOGIC: The patient is awake, alert and oriented. Cranial nerves are grossly intact. Results Result Diagram: 10/06/1635 10/06/16 0535 Results 24 hrs Laboratory Tests Test 10/06/16 05:35 Anion Gap 19 H Basophils # 0.0 Basophils % 0.1 Blood Urea Nitrogen 31 H Calcium Level 8.8 Carbon Dioxide Level 27 Chloride Level 99 Creatinine 0.77 Eosinophils # 0.0 Eosinophils % 0.0 Glucose Level 181 Hematocrit 45.7 Hemoglobin 14.6 Lymphocytes # 0.7 L Lymphocytes % 8.5 L Magnesium Level 1.9 Mean Corpuscular Hemoglobin 30.4 Mean Corpuscular Hemoglobin Concent 31.9 L Mean Corpuscular Volume 95.0 Mean Platelet Volume 11.4 H Monocytes # 0.2 L Monocytes % 2.8 Neutrophils # 7.0 Neutrophils % 88.2 H Nucleated Red Blood Cells # 0.0 Nucleated Red Blood Cells % 0.0 Phosphorus Level 4.7 Platelet Count 212 Potassium Level 5.3 H Red Blood Count 4.81 Red Cell Distribution Width 16.9 H Sodium Level 140 White Blood Count 7.9 Medications Medications Current Medications Furosemide (Lasix) 20 mg DAILY@06 PO Last administered on 10/06/16 05:12; Admin Dose 20 MG; Start 10/04/16 at 06:00 Montelukast Sodium (Singulair) 10 mg QHS PO Last administered on 10/05/16 21: 17; Admin Dose 10 MG; Start 10/04/16 at 21:00 Nitroglycerin (Nitroglycerin (Sl Tab) 0.4 Mg) 1 tab PRN PRN SL CHEST PAIN; Start 10/04/16 at 04:00 Sertraline HCl (Zoloft) 25 mg DAILY PO Last administered on 10/06/16 08:49; Admin Dose 25 MG; Start 10/04/16 at 09:00 Calcium/Vitamin D (Oyster Shell/ Vit-D (500/200)) 1 tab DAILY PO Last administered on 10/06/16 08:47; Admin Dose 1 TAB; Start 10/04/16 at 09:00 Famotidine (Pepcid) 20 mg BID PO Last administered on 10/06/16 08:47; Admin Dose 20 MG; Start 10/04/16 at 09:00 Acetaminophen (Tylenol Tab) 650 mg Q6H PRN PO PAIN AND OR ELEVATED TEMP Last administered on 10/05/16 18:58; Admin Dose 650 MG; Start 10/04/16 at 04:00 Ondansetron HCl (Zofran Inj) 4 mg Q6H PRN IV NAUSEA AND/OR VOMITING; Start at 04:00 Methylprednisolone Sodium Succinate (Solu-Medrol) 60 mg Q12 IV Last administered on 10/06/16 08:45; Admin Dose 60 MG; Start 10/04/16 at 09:00 Heparin Sodium (Porcine) (Heparin (5000 Units/0.5 ml)) 5,000 unit BID SC Last administered on 10/04/16 21:44; Admin Dose 5,000 UNIT; Start 10/04/16 at 09:00 Morphine Sulfate (morphine) 3 mg Q4H PRN IV PAIN; Start 10/04/16 at 08:30 Hydralazine HCl (Apresoline) 10 mg Q4H PRN IV SBP GREATER THAN 160; Start 10/04 at 08:30 Guaifenesin/ Dextromethorphan 10 ml 10 ml Q4H PRN PO COUGH Last administered on 10/05/16 21:21; Admin Dose 10 ML; Start 10/04/16 at 08:30 Levofloxacin/ Dextrose (Levaquin 500mg/ D5W 100 ml (Pmx)) 100 ml @ 100 mls/hr Q24H IVPB Last administered on 10/05/16 13:24; Admin Dose 100 MLS/HR; Start at 14:00 Losartan Potassium (Cozaar) 100 mg DAILY PO Last administered on 10/06/16 08: 49; Admin Dose 100 MG; Start 10/06/16 at 09:00 Isosorbide Dinitrate (Isordil) 20 mg TID PO Last administered on 10/06/16 08: 50; Admin Dose 20 MG; Start 10/05/16 at 13:00 DARYL CHAND NP Oct 06, 2016 13:27
[2016-10-06] MEDS ORDERED: FUROSEMIDE 20 MG INJ IV ONE (13:30)
[2016-10-06] MEDS: LEVOFLOXACIN 500MG/D5W (PMX) 100 ML IVPB SCH (13:54)
[2016-10-06] MEDS: ACETAMINOPHEN 325 MG TAB PO PRN (18:23)
[2016-10-06] MEDS: GUAIFENESIN/DM 5ML CUP PO PRN (18:23)
[2016-10-06 19:13] VITALS: BP 98/56; RESP 18
[2016-10-06] MEDS: ALBUTEROL/IPRATROPIUM (NEB) 3 ML AMP HHN PRN (19:32)
[2016-10-06] MEDS: MONTELUKAST 10 MG TAB PO SCH (21:26)
[2016-10-07 04:52] LABS: ADD SCAN DIFF NO
[2016-10-07 04:55] LABS: BASOPHILS % 0.1 % (0.0-2.0); HEMOGLOBIN 14.9 g/dl (12.0-16.0); LYMPHOCYTES # 0.7 10^3/ul (0.8-2.9); LYMPHOCYTES % 7.9 % (15.0-51.0); MEAN CORPUSCULAR HGB CONC 32.4 g/dl (32.0-37.0); MEAN CORPUSCULAR VOLUME 92.6 fl (82.0-101.0); MEAN PLATELET VOLUME 10.5 fl (7.4-10.4); MONOCYTE # 0.2 10^3/ul (0.3-0.9); MONOCYTES % 2.3 % (0.0-11.0); NEUTROPHIL # 7.4 10^3/ul (1.6-7.5); NEUTROPHILS % 89.3 % (39.0-77.0); PLATELET COUNT 192 10^3/UL (140-415); RED BLOOD COUNT 4.97 10^6/ul (4.20-5.40); RED CELL DISTRIBUTION WIDTH 16.5 % (11.5-14.5); WHITE BLOOD COUNT 8.3 10^3/ul (4.8-10.8)
[2016-10-07 05:32] LABS: MAGNESIUM 2.2 mg/dl (1.7-2.5); PHOSPHORUS 5.1 mg/dl (2.5-4.9)
[2016-10-07 05:55] LABS: POTASSIUM 4.7 mmol/L (3.5-5.1)
[2016-10-07 05:58] LABS: CALCIUM 9.2 mg/dl (8.4-10.2); CREATININE 0.92 mg/dl (0.44-1.00)
[2016-10-07 08:13] VITALS: BP 135/67; RESP 20
[2016-10-07] MEDS: FUROSEMIDE 20 MG TAB PO SCH (08:23)
[2016-10-07] MEDS: LOSARTAN 50 MG TAB PO SCH (08:24)
[2016-10-07] MEDS: METHYLPREDNISOLONE 125 MG INJ IV SCH ×2 (08:24→21:29)
[2016-10-07] MEDS: ISOSORBIDE DINITRATE 20 MG TAB PO SCH ×3 (08:25→21:31)
[2016-10-07] MEDS: FAMOTIDINE 20 MG TAB PO SCH ×2 (08:25→21:30)
[2016-10-07] MEDS: CALCIUM/VITAMIN D (500/200) TAB PO SCH (08:25)
[2016-10-07] MEDS: SERTRALINE 50 MG TAB PO SCH (08:26)
[2016-10-07] MEDS: GUAIFENESIN/DM 5ML CUP PO PRN (08:26)
[2016-10-07] MEDS: HEPARIN 5,000 UNIT/0.5 ML SYG SC SCH ×2 (08:35→21:00)
[2016-10-07] MEDS: ALBUTEROL/IPRATROPIUM (NEB) 3 ML AMP HHN PRN ×3 (10:18→19:28)
[2016-10-07] MEDS ORDERED: MONT10TA24 PO (11:18)
[2016-10-07] MEDS ORDERED: LEVO500T72 PO (11:18)
[2016-10-07] MEDS ORDERED: PIRF267C PO (11:18)
[2016-10-07] MEDS ORDERED: ALBU2.5V3 NEB (11:18)
[2016-10-07] MEDS ORDERED: ISOS20TA19 PO (11:18)
[2016-10-07] MEDS ORDERED: LOSA50TA6 PO (11:18)
[2016-10-07] MEDS ORDERED: UDROBAC PO (11:18)
[2016-10-07] MEDS ORDERED: ADV25050 INHALATION (11:43)
[2016-10-07] MEDS: SALMETEROL/FLUTICASONE 250/50 INHA INH SCH ×2 (12:26→21:29)
--- NOTE | 2016-10-07 13:36 | PN ---
Date/Time of Note Date/Time of Note DATE: 10/07/16 TIME: 13:16 Assessment/Plan VTE Prophylaxis VTE Prophylaxis Intervention: heparin Lines/Catheters IV [facility] Saline Lock Urinary Cath still in place: No Assessment/Plan Chief Complaint/Hosp Course 1. Acute on chronic respiratory failure. Likely URI with underlying pulmonary fibrosis and asthma exacerbation. Continue inhaled bronchodilators. Taper down steroids. Continue supplemental oxygen. 2. Accelerated hypertension. Cont antihypertensives and adjust as needed 3. Pulmonary fibrosis. Continue Singulair and Esbriet. 4. Right upper extremity pain with limited range of motion of the right upper extremity. Likely secondary to her history of arthiritis. Continue with analgesics as needed. DISPO/PLAN: Still with some dyspnea. cont on bronchodilators. cont on o2. await clinical improvement of respiratory status. Discussed plan of care with Dr. Hardy Problems: Subjective 24 Hr Interval Summary Free Text/Dictation still with reported shortness of breath Exam/Review of Systems Vital Signs Vitals Vital Signs Date Time Temp Pulse Resp B/P Pulse Ox O2 Delivery O2 Flow Rate FiO2 10/07/16 10:20 100 24 98 Nasal Cannula 3.0 10/07/16 08:13 98.0 135/67 Intake and Output 10/06/16 10/06/16 10/07/16 14:59 22:59 06:59 Intake Total 500 ml 840 ml Output Total 900 ml Balance 500 ml -60 ml Exam General: No acute signs or symptoms of distress Eyes: pupils equal round, Anicteric sclera Neck: Supple nontender, no JVD Cardiac: S1, S2 auscultated, regular rhythm and rate Pulmonary: fine crackles hurt at base of lungs. Diminished bilaterally GI: Abdomen soft nontender nondistended, bowel sounds active Extremities: No edema bilateral lower extremities Skin: Clean dry and intact Neurologic: Alert to person place and time and situation Results Result Diagram: 10/07/1642210/07/16422 Results 24 hrs Laboratory Tests Test 10/07/16 04:23 Anion Gap 17 H Basophils # 0.0 Basophils % 0.1 Blood Urea Nitrogen 40 H Calcium Level 9.2 Carbon Dioxide Level 30 Chloride Level 98 Creatinine 0.92 Eosinophils # 0.0 Eosinophils % 0.0 Glucose Level 145 Hematocrit 46.0 Hemoglobin 14.9 Lymphocytes # 0.7 L Lymphocytes % 7.9 L Magnesium Level 2.2 Mean Corpuscular Hemoglobin 30.0 Mean Corpuscular Hemoglobin Concent 32.4 Mean Corpuscular Volume 92.6 Mean Platelet Volume 10.5 H Monocytes # 0.2 L Monocytes % 2.3 Neutrophils # 7.4 Neutrophils % 89.3 H Nucleated Red Blood Cells # 0.0 Nucleated Red Blood Cells % 0.0 Phosphorus Level 5.1 H Platelet Count 192 Potassium Level 4.7 Red Blood Count 4.97 Red Cell Distribution Width 16.5 H Sodium Level 140 White Blood Count 8.3 Medications Medications Current Medications Furosemide (Lasix) 20 mg DAILY@06 PO Last administered on 10/07/16 08:23; Admin Dose 20 MG; Start 10/04/16 at 06:00 Montelukast Sodium (Singulair) 10 mg QHS PO Last administered on 10/06/16 21: 26; Admin Dose 10 MG; Start 10/04/16 at 21:00 Nitroglycerin (Nitroglycerin (Sl Tab) 0.4 Mg) 1 tab PRN PRN SL CHEST PAIN; Start 10/04/16 at 04:00 Sertraline HCl (Zoloft) 25 mg DAILY PO Last administered on 10/07/16 08:26; Admin Dose 25 MG; Start 10/04/16 at 09:00 Calcium/Vitamin D (Oyster Shell/ Vit-D (500/200)) 1 tab DAILY PO Last administered on 10/07/16 08:25; Admin Dose 1 TAB; Start 10/04/16 at 09:00 Famotidine (Pepcid) 20 mg BID PO Last administered on 10/07/16 08:25; Admin Dose 20 MG; Start 10/04/16 at 09:00 Acetaminophen (Tylenol Tab) 650 mg Q6H PRN PO PAIN AND OR ELEVATED TEMP Last administered on 10/06/16 18:23; Admin Dose 650 MG; Start 10/04/16 at 04:00 Ondansetron HCl (Zofran Inj) 4 mg Q6H PRN IV NAUSEA AND/OR VOMITING Last administered on 10/07/16 12:25; Admin Dose 4 MG; Start 10/04/16 at 04:00 Methylprednisolone Sodium Succinate (Solu-Medrol) 60 mg Q12 IV Last administered on 10/07/16 08:24; Admin Dose 60 MG; Start 10/04/16 at 09:00 Heparin Sodium (Porcine) (Heparin (5000 Units/0.5 ml)) 5,000 unit BID SC Last administered on 10/04/16 21:44; Admin Dose 5,000 UNIT; Start 10/04/16 at 09:00 Morphine Sulfate (morphine) 3 mg Q4H PRN IV PAIN; Start 10/04/16 at 08:30 Hydralazine HCl (Apresoline) 10 mg Q4H PRN IV SBP GREATER THAN 160; Start 10/04 at 08:30 Guaifenesin/ Dextromethorphan 10 ml 10 ml Q4H PRN PO COUGH Last administered on 10/07/16 08:26; Admin Dose 10 ML; Start 10/04/16 at 08:30 Levofloxacin/ Dextrose (Levaquin 500mg/ D5W 100 ml (Pmx)) 100 ml @ 100 mls/hr Q24H IVPB Last administered on 10/06/16 13:54; Admin Dose 100 MLS/HR; Start at 14:00 Losartan Potassium (Cozaar) 100 mg DAILY PO Last administered on 10/07/16 08: 24; Admin Dose 100 MG; Start 10/06/16 at 09:00 Isosorbide Dinitrate (Isordil) 20 mg TID PO Last administered on 10/07/16 08: 25; Admin Dose 20 MG; Start 10/05/16 at 13:00 Salmeterol Xinafoate/ Fluticasone (Advair 250/50 Diskus) 1 inh BID INH Last administered on 10/07/16 12:26; Admin Dose 1 INH; Start 10/07/16 at 12:00 THERESE ELDRIDGE Oct 07, 2016 13:29
[2016-10-07] MEDS: LEVOFLOXACIN 500MG/D5W (PMX) 100 ML IVPB SCH (13:46)
[2016-10-07 20:16] VITALS: BP 124/64; RESP 18
[2016-10-07] MEDS: MONTELUKAST 10 MG TAB PO SCH (21:30)
[2016-10-08] MEDS: GUAIFENESIN/DM 5ML CUP PO PRN ×2 (02:40→22:20)
[2016-10-08] MEDS: ALBUTEROL/IPRATROPIUM (NEB) 3 ML AMP HHN PRN ×3 (04:59→19:36)
[2016-10-08 05:04] LABS: ADD SCAN DIFF NO
[2016-10-08 05:15] LABS: ABNORMAL IP MESSAGE 1; BASOPHILS % 0.1 % (0.0-2.0); HEMATOCRIT 43.7 % (37.0-47.0); HEMOGLOBIN 13.8 g/dl (12.0-16.0); LYMPHOCYTES # 0.5 10^3/ul (0.8-2.9); LYMPHOCYTES % 5.6 % (15.0-51.0); MEAN CORPUSCULAR HEMOGLOBIN 29.4 pg (29.0-33.0); MEAN CORPUSCULAR HGB CONC 31.6 g/dl (32.0-37.0); MEAN PLATELET VOLUME 11.1 fl (7.4-10.4); MONOCYTE # 0.3 10^3/ul (0.3-0.9); MONOCYTES % 3.1 % (0.0-11.0); NEUTROPHIL # 8.5 10^3/ul (1.6-7.5); NEUTROPHILS % 90.9 % (39.0-77.0); PLATELET COUNT 166 10^3/UL (140-415); RED CELL DISTRIBUTION WIDTH 16.2 % (11.5-14.5); WHITE BLOOD COUNT 9.4 10^3/ul (4.8-10.8)
[2016-10-08 05:27] LABS: POTASSIUM 5.1 mmol/L (3.5-5.1)
[2016-10-08 05:29] LABS: CREATININE 0.86 mg/dl (0.44-1.00)
[2016-10-08 05:30] LABS: CALCIUM 9.2 mg/dl (8.4-10.2)
[2016-10-08] MEDS: LEVOFLOXACIN 500 MG TAB PO SCH (05:52)
[2016-10-08] MEDS: FUROSEMIDE 20 MG TAB PO SCH (05:53)
[2016-10-08 08:01] VITALS: BP 126/73; RESP 18
[2016-10-08] MEDS: SALMETEROL/FLUTICASONE 250/50 INHA INH SCH ×2 (08:50→21:03)
[2016-10-08] MEDS: METHYLPREDNISOLONE 125 MG INJ IV SCH ×2 (08:51→21:03)
[2016-10-08] MEDS: ISOSORBIDE DINITRATE 20 MG TAB PO SCH ×3 (08:52→21:03)
[2016-10-08] MEDS: LOSARTAN 50 MG TAB PO SCH (08:52)
[2016-10-08] MEDS: CALCIUM/VITAMIN D (500/200) TAB PO SCH (08:52)
[2016-10-08] MEDS: SERTRALINE 50 MG TAB PO SCH (08:53)
[2016-10-08] MEDS: FAMOTIDINE 20 MG TAB PO SCH ×2 (08:53→21:03)
[2016-10-08] MEDS: HEPARIN 5,000 UNIT/0.5 ML SYG SC SCH ×2 (08:55→21:00)
--- NOTE | 2016-10-08 12:18 | PDOCDIS ---
Discharge Instructions DIAGNOSIS Discharge Diagnosis: 1. Acute failure secondary to pulmonary fibrosis/asthma exacerbation CONDITION Patient Condition: Stable HOME CARE INSTRUCTIONS: Diet Instructions: Low Fat /CholesterolSpecial Diet: 2g na diet ACTIVITY: Activity Restrictions: Slowly Increase Activity Rest between Activity Avoid heavy lifting Avoid Heavy Housework Bathing Restrictions: Shower FOLLOW UP/APPOINTMENTS Appointments 1. Follow up with your primary care provider in one week THERESE ELDRIDGE Oct 08, 2016 12:17
--- NOTE | 2016-10-08 12:22 | DS ---
Date/Time of Note Date/Time of Note DATE: 10/08/16 TIME: 12:21 Discharge Summary Admission/Discharge Info Admit Date/Time Oct 05, 2016 at 11:42 Discharge Date/Time Final Diagnosis 1. Acute on chronic respiratory failure. Likely URI with underlying pulmonary fibrosis and asthma exacerbation. 2. Accelerated hypertension. 3. Pulmonary fibrosis. 4. Right upper extremity pain with limited range of motion of the right upper extremity. Likely secondary to her history of arthiritis. Patient Condition: Stable Consults 1. Dr. Luigi Ferrell Hospital Course This is a 66-year-old female with history of pulmonary fibrosis, oxygen dependence, arthritis, asthma, hypertension, who came to [facility] due to reports of cough and shortness of breath. Patient did report her her breathing progressively got worse 4 days prior to admission. She does state she takes oral steroids and takes her medications compliantly but despite this has been having more shortness of breath. She did come to [facility]. On further examination she was found to have oxygen saturation at 82% on room air. She did have chest x-ray that did show interstitial pulmonary disease consistent with pulmonary edema/chronic inflammatory process. 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 She was optimized with bronchodilators as well as steroid treatment. She was also continued on oxygen supplementation. Patient did have good response to breathing treatments. Her breathing did improve. She was likely with underlying acute bronchitis was treated with antibiotics. During her course of stay she did improve. She was otherwise optimized medically. She is continued on antihypertensives for her hypertension and also esbriet for her pulmonary fibrosis. She was noted with some chronic arthritis for which she is continued on analgesics. The plan of care was discussed with the patient and patient did verbalize her understanding. On the day of discharge patient was in stable condition Discharge process time is 40 minutes Discussed plan of care with Dr. Hardy Disposition: Home with home health services Home Meds Active Scripts Salmeterol Xinaf/Fluticasone* (Advair*) 250-50 Diskus Inhaler, 1 INH INHALATION BID, #1 INHALER Prov:THERESE ELDRIDGE 10/07/16 Levofloxacin* (Levaquin*) 500 Mg Tablet, 500 MG PO DAILY for 7 Days, TAB Prov:REGREYRTHERESE 10/07/16 Losartan Potassium* (Losartan Potassium*) 50 Mg Tablet, 100 MG PO DAILY for 30 Days, TAB Prov:THERESE ELDRIDGE 10/07/16 Isosorbide Dinitrate* (Isosorbide Dinitrate*) 20 Mg Tablet, 20 MG PO TID for 30 Days, TAB Prov:THERESE ELDRIDGE 10/07/16 Albuterol Sulfate* (Albuterol Sulfate* Neb) 0.083%-3 Ml Neb, 2.5 MG NEB Q6 Y for WHEEZING AND SOB, #30 VIAL Prov:THERESE ELDRIDGE 10/07/16 Montelukast Sodium* (Montelukast Sodium*) 10 Mg Tablet, 10 MG PO QHS, #30 TAB Prov:THERESE ELDRIDGE 10/07/16 Pirfenidone (Esbriet) 267 Mg Capsule, 801 MG PO WITH MEALS for 30 Days, CAP THREE TIMES DAILY Prov:THERESE ELDIRDGE 10/07/16 Reported Medications Calcium Carbonate/Vitamin D3 (Oysco 500+D Tablet) 1 Each Tablet, 1 EACH PO DAILY , TAB 10/03/16 Nitroglycerin* (Nitrostat*) 0.4 Mg Tab.subl, 0.4 MG SL Q5MIN Y for CHEST PAIN, BOTTLE 10/03/16 Prednisone* (Prednisone*) 10 Mg Tab, 10 MG PO DAILY, TAB 10/03/16 Losartan Potassium* (Losartan Potassium*) 50 Mg Tablet, 50 MG PO DAILY, TAB 10/03/16 Furosemide* (Lasix*) 20 Mg Tablet, 20 MG PO DAILY, TAB 10/03/16 Benazepril Hcl* (Benazepril Hcl*) 5 Mg Tablet, 5 MG PO DAILY, #30 TAB 10/03/16 Hydrochlorothiazide* (Hydrochlorothiazide*) 25 Mg Tab, 25 MG PO DAILY, #30 TAB 10/03/16 Omeprazole* (Omeprazole*) 20 Mg Capsule.dr, 20 MG PO DAILY, #30 CAP 10/03/16 Sertraline Hcl* (Zoloft*) 25 Mg Tablet, 25 MG PO DAILY, #30 TAB 10/03/16 Isosorbide Dinitrate* (Isosorbide Dinitrate*) 10 Mg Tablet, 10 MG PO TID, TAB 10/03/16 Follow-up Plan CONDITION Patient Condition: Stable HOME CARE INSTRUCTIONS: Diet Instructions: Low Fat /CholesterolSpecial Diet: 2g na diet ACTIVITY: Activity Restrictions: Slowly Increase Activity Rest between Activity Avoid heavy lifting Avoid Heavy Housework Bathing Restrictions: Shower FOLLOW UP/APPOINTMENTS Appointments 1. Follow up with your primary care provider in one week Pending Labs Laboratory Tests Test 10/08/16 04:40 Anion Gap 14 (8-16) Basophils # 0.010^3/ul (0.0-0.1) Basophils % 0.1% (0.0-2.0) Blood Urea Nitrogen 33mg/dl (7-20) Calcium Level 9.2mg/dl (8.4-10.2) Carbon Dioxide Level 33mmol/L (21-31) Chloride Level 96mmol/L (97-110) Creatinine 0.86mg/dl (0.44-1.00) Eosinophils # 0.010^3/ul (0.0-0.5) Eosinophils % 0.0% (0.0-7.0) Glucose Level 136mg/dl (70-220) Hematocrit 43.7% (37.0-47.0) Hemoglobin 13.8g/dl (12.0-16.0) Lymphocytes # 0.510^3/ul (0.8-2.9) Lymphocytes % 5.6% (15.0-51.0) Mean Corpuscular Hemoglobin 29.4pg (29.0-33.0) Mean Corpuscular Hemoglobin Concent 31.6g/dl (32.0-37.0) Mean Corpuscular Volume 93.0fl (82.0-101.0) Mean Platelet Volume 11.1fl (7.4-10.4) Monocytes # 0.310^3/ul (0.3-0.9) Monocytes % 3.1% (0.0-11.0) Neutrophils # 8.510^3/ul (1.6-7.5) Neutrophils % 90.9% (39.0-77.0) Nucleated Red Blood Cells # 0.010^3/ul (0.0-0.0) Nucleated Red Blood Cells % 0.0/100WBC (0.0-0.0) Platelet Count 33189^3/UL (140-415) Potassium Level 5.1mmol/L (3.5-5.1) Red Blood Count 4.7010^6/ul (4.20-5.40) Red Cell Distribution Width 16.2% (11.5-14.5) Sodium Level 138mmol/L (135-144) White Blood Count 9.410^3/ul (4.8-10.8) THERESE ELDRIDGE Oct 08, 2016 12:22
[2016-10-08 19:30] VITALS: BP 110/59
[2016-10-08] MEDS: MONTELUKAST 10 MG TAB PO SCH (21:03)
[2016-10-09] MEDS: GUAIFENESIN/DM 5ML CUP PO PRN ×2 (04:08→12:00)
[2016-10-09 05:29] LABS: ADD SCAN DIFF NO
[2016-10-09] MEDS: LEVOFLOXACIN 500 MG TAB PO SCH (05:41)
[2016-10-09] MEDS: FUROSEMIDE 20 MG TAB PO SCH (05:42)
[2016-10-09 05:44] VITALS: BP 178/90
[2016-10-09 05:46] LABS: HEMATOCRIT 44.8 % (37.0-47.0); HEMOGLOBIN 14.4 g/dl (12.0-16.0); LYMPHOCYTES # 0.7 10^3/ul (0.8-2.9); LYMPHOCYTES % 7.2 % (15.0-51.0); MEAN CORPUSCULAR HEMOGLOBIN 30.3 pg (29.0-33.0); MEAN CORPUSCULAR HGB CONC 32.1 g/dl (32.0-37.0); MEAN CORPUSCULAR VOLUME 94.1 fl (82.0-101.0); MEAN PLATELET VOLUME 10.7 fl (7.4-10.4); MONOCYTE # 0.4 10^3/ul (0.3-0.9); MONOCYTES % 3.6 % (0.0-11.0); NEUTROPHIL # 8.6 10^3/ul (1.6-7.5); NEUTROPHILS % 88.6 % (39.0-77.0); PLATELET COUNT 200 10^3/UL (140-415); RED BLOOD COUNT 4.76 10^6/ul (4.20-5.40); RED CELL DISTRIBUTION WIDTH 16.7 % (11.5-14.5); WHITE BLOOD COUNT 9.7 10^3/ul (4.8-10.8)
[2016-10-09 05:53] LABS: POTASSIUM 5.2 mmol/L (3.5-5.1)
[2016-10-09 05:55] LABS: CREATININE 0.83 mg/dl (0.44-1.00)
[2016-10-09 05:56] LABS: CALCIUM 9.1 mg/dl (8.4-10.2)
[2016-10-09 08:07] VITALS: BP 151/84; RESP 18
[2016-10-09] MEDS: ISOSORBIDE DINITRATE 20 MG TAB PO SCH ×2 (08:30→12:00)
[2016-10-09] MEDS: FAMOTIDINE 20 MG TAB PO SCH (08:30)
[2016-10-09] MEDS: CALCIUM/VITAMIN D (500/200) TAB PO SCH (08:30)
[2016-10-09] MEDS: LOSARTAN 50 MG TAB PO SCH (08:30)
[2016-10-09] MEDS: METHYLPREDNISOLONE 125 MG INJ IV SCH (08:31)
[2016-10-09] MEDS: SERTRALINE 50 MG TAB PO SCH (08:31)
[2016-10-09] MEDS: SALMETEROL/FLUTICASONE 250/50 INHA INH SCH (08:32)
[2016-10-09] MEDS: HEPARIN 5,000 UNIT/0.5 ML SYG SC SCH (08:34)
[2016-10-09] MEDS: ALBUTEROL/IPRATROPIUM (NEB) 3 ML AMP HHN PRN ×2 (09:27→14:18)
[2016-10-09] MEDS ORDERED: IPRA3AMP INHALATION (11:15)
[2016-10-09 12:01] VITALS: BP 124/64; PULSE 98
--- NOTE | 2016-10-09 15:12 | DS ---
Date/Time of Note Date/Time of Note DATE: 10/09/16 TIME: 15:10 Discharge Summary Admission/Discharge Info Admit Date/Time Oct 05, 2016 at 11:42 Discharge Date/Time Final Diagnosis 1. Acute on chronic respiratory failure. Likely URI with underlying pulmonary fibrosis and asthma exacerbation. 2. Accelerated hypertension. 3. Pulmonary fibrosis. 4. Right upper extremity pain with limited range of motion of the right upper extremity. Likely secondary to her history of arthiritis. Patient Condition: Stable Consults 1. Dr. Luigi Ferrell Hospital Course This is a 66-year-old female with history of pulmonary fibrosis, oxygen dependence, arthritis, asthma, hypertension, who came to [facility] due to reports of cough and shortness of breath. Patient did report her her breathing progressively got worse 4 days prior to admission. She does state she takes oral steroids and takes her medications compliantly but despite this has been having more shortness of breath. She did come to [facility]. On further examination she was found to have oxygen saturation at 82% on room air. She did have chest x-ray that did show interstitial pulmonary disease consistent with pulmonary edema/chronic inflammatory process. Due to patient's respiratory history, we did get oriental medicine practitioner follow. She was optimized with bronchodilators as well as steroid treatment. She was also continued on oxygen supplementation. Patient did have good response to breathing treatments. Her breathing did improve. She was likely with underlying acute bronchitis was treated with antibiotics. During her course of stay she did improve. She was otherwise optimized medically. She is continued on antihypertensives for her hypertension and also esbriet for her pulmonary fibrosis. She was noted with some chronic arthritis for which she is continued on analgesics. Patient was initially plan for discharge on September however needed home health services set up for home. Equipment and care where set up on 10/09/2016. The plan of care was discussed with the patient and patient did verbalize her understanding. On the day of discharge patient was in stable condition Discussed plan of care with Dr. Hardy Discharge process time is 40 minutes Disposition: Home with home health services Home Meds Active Scripts Ipratropium-Albuterol (Ipratropium-Albuterol) 0.5-3 Mg/3 Ml Ampul.neb, 3 ML INHALATION Q6, #90 VIAL Prov:THERESE ELDRIDGE 10/09/16 Salmeterol Xinaf/Fluticasone* (Advair*) 250-50 Diskus Inhaler, 1 INH INHALATION BID, #1 INHALER Prov:THERESETEDTHERESE 10/07/16 Guaifenesin-Codeine Phosphate* (Robitussin* AC) 5 Ml Syrup, 5 ML PO Q4H Y for COUGH, #6 OZ Prov:THERESE ELDRIDGE 10/07/16 Levofloxacin* (Levaquin*) 500 Mg Tablet, 500 MG PO DAILY for 7 Days, TAB Prov:REGIDOTHERESE Salazar 10/07/16 Losartan Potassium* (Losartan Potassium*) 50 Mg Tablet, 100 MG PO DAILY for 30 Days, TAB Prov:THERESE ELDRIDGE 10/07/16 Isosorbide Dinitrate* (Isosorbide Dinitrate*) 20 Mg Tablet, 20 MG PO TID for 30 Days, TAB Prov:THREESE ELDRIDGE 10/07/16 Albuterol Sulfate* (Albuterol Sulfate* Neb) 0.083%-3 Ml Neb, 2.5 MG NEB Q6 Y for WHEEZING AND SOB, #30 VIAL Prov:THERESE ELDRIDGE 10/07/16 Montelukast Sodium* (Montelukast Sodium*) 10 Mg Tablet, 10 MG PO QHS, #30 TAB Prov:CHENTETHERESE 10/07/16 Pirfenidone (Esbriet) 267 Mg Capsule, 801 MG PO WITH MEALS for 30 Days, CAP THREE TIMES DAILY Prov:CHENTETHERESE 10/07/16 Reported Medications Calcium Carbonate/Vitamin D3 (Oysco 500+D Tablet) 1 Each Tablet, 1 EACH PO DAILY , TAB 10/03/16 Nitroglycerin* (Nitrostat*) 0.4 Mg Tab.subl, 0.4 MG SL Q5MIN Y for CHEST PAIN, BOTTLE 10/03/16 Prednisone* (Prednisone*) 10 Mg Tab, 10 MG PO DAILY, TAB 10/03/16 Furosemide* (Lasix*) 20 Mg Tablet, 20 MG PO DAILY, TAB 10/03/16 Benazepril Hcl* (Benazepril Hcl*) 5 Mg Tablet, 5 MG PO DAILY, #30 TAB 10/03/16 Hydrochlorothiazide* (Hydrochlorothiazide*) 25 Mg Tab, 25 MG PO DAILY, #30 TAB 10/03/16 Omeprazole* (Omeprazole*) 20 Mg Capsule.dr, 20 MG PO DAILY, #30 CAP 10/03/16 Sertraline Hcl* (Zoloft*) 25 Mg Tablet, 25 MG PO DAILY, #30 TAB 10/03/16 Discontinued Reported Medications Losartan Potassium* (Losartan Potassium*) 50 Mg Tablet, 50 MG PO DAILY, TAB 10/03/16 Isosorbide Dinitrate* (Isosorbide Dinitrate*) 10 Mg Tablet, 10 MG PO TID, TAB 10/03/16 Follow-up Plan CONDITION Patient Condition: Stable HOME CARE INSTRUCTIONS: Diet Instructions: Low Fat /CholesterolSpecial Diet: 2g na diet ACTIVITY: Activity Restrictions: Slowly Increase Activity Rest between Activity Avoid heavy lifting Avoid Heavy Housework Bathing Restrictions: Shower FOLLOW UP/APPOINTMENTS Appointments 1. Follow up with your primary care provider in one week Pending Labs Laboratory Tests Test 10/09/16 04:30 Anion Gap 16 (8-16) Basophils # 0.010^3/ul (0.0-0.1) Basophils % 0.0% (0.0-2.0) Blood Urea Nitrogen 31mg/dl (7-20) Calcium Level 9.1mg/dl (8.4-10.2) Carbon Dioxide Level 33mmol/L (21-31) Chloride Level 95mmol/L (97-110) Creatinine 0.83mg/dl (0.44-1.00) Eosinophils # 0.010^3/ul (0.0-0.5) Eosinophils % 0.0% (0.0-7.0) Glucose Level 149mg/dl (70-220) Hematocrit 44.8% (37.0-47.0) Hemoglobin 14.4g/dl (12.0-16.0) Lymphocytes # 0.710^3/ul (0.8-2.9) Lymphocytes % 7.2% (15.0-51.0) Mean Corpuscular Hemoglobin 30.3pg (29.0-33.0) Mean Corpuscular Hemoglobin Concent 32.1g/dl (32.0-37.0) Mean Corpuscular Volume 94.1fl (82.0-101.0) Mean Platelet Volume 10.7fl (7.4-10.4) Monocytes # 0.410^3/ul (0.3-0.9) Monocytes % 3.6% (0.0-11.0) Neutrophils # 8.610^3/ul (1.6-7.5) Neutrophils % 88.6% (39.0-77.0) Nucleated Red Blood Cells # 0.010^3/ul (0.0-0.0) Nucleated Red Blood Cells % 0.0/100WBC (0.0-0.0) Platelet Count 09692^3/UL (140-415) Potassium Level 5.2mmol/L (3.5-5.1) Red Blood Count 4.7610^6/ul (4.20-5.40) Red Cell Distribution Width 16.7% (11.5-14.5) Sodium Level 139mmol/L (135-144) White Blood Count 9.710^3/ul (4.8-10.8) THERESE ELDRIDGE Oct 09, 2016 15:12
== END 2016-10-09 16:15 | disposition home health service (06) | DRG 189 ==
LOC: E/R 15:31 → TEL 20:00 → OBSVTOIN 10-05 11:42 → MS1 10-06 11:10
PROVIDERS: ADMIT Internal Medicine; ATTEND Internal Medicine
DX: J96.21 Acute and chronic respiratory failure with hypoxia (principal); J84.10 Pulmonary fibrosis, unspecified; Z99.81 Dependence on supplemental oxygen; J45.901 Unspecified asthma with (acute) exacerbation; J20.9 Acute bronchitis, unspecified; I10 Essential (primary) hypertension; M19.011 Primary osteoarthritis, right shoulder; E66.9 Obesity, unspecified; Z68.30 Body mass index [BMI] 30.0-30.9, adult; Z79.52 Long term (current) use of systemic steroids; Z87.891 Personal history of nicotine dependence
CPT/HCPCS: 36415; 71010; 80048; 80053; 80061; 83036; 83735; 83880; 84100; 84439; 84443; 84484; 85025; 87400; 93005; 93306; 94640; 94644; 94664; 96374; 97116; 97162; 97530; G0378; J1940; J0360; J1956; J2405; J2930; J7030